=== PATIENT | male | born 1985 | race Caucasian/White ===

== ENCOUNTER 2016-10-01 13:48 | Emergency (ER) | payer MEDICAID ==
[~2016-10-01] VITALS: Ht 185.4 cm; Wt 98.8 kg
[~2016-10-01 13:48] MED LIST: AMOX1TAB61 PO
[2016-10-01 13:49] VITALS: BP 115/68
[2016-10-01] MEDS ORDERED: METHOCARBAMOL 750 MG TABLET PO ONE (14:30)
[2016-10-01] MEDS ORDERED: KETOROLAC 30 MG/1 ML IM ONE (14:30)
[2016-10-01] MEDS ORDERED: KETOROLAC 30 MG/1 ML ONE (14:37)
[2016-10-01] MEDS ORDERED: METHOCARBAMOL 750 MG TABLET ONE (14:37)
== END 2016-10-01 15:21 | disposition home or self-care (01) ==
LOC: ED 15:05
DX: S39.012A Strain of muscle, fascia and tendon of lower back, initial encounter (principal); F12.10 Cannabis abuse, uncomplicated; X50.9XXA Other and unspecified overexertion or strenuous movements or postures, initial encounter; Y93.89 Activity, other specified; Y92.89 Other specified places as the place of occurrence of the external cause; Y99.8 Other external cause status
CPT/HCPCS: 71020; 72110; 96372; 99284; J1885

== ENCOUNTER 2016-10-13 19:34 | Emergency (ER) | payer MEDICAID ==
[~2016-10-13] VITALS: Ht 185.4 cm; Wt 102.1 kg
[2016-10-13 19:37] VITALS: BP 125/74
[2016-10-13] MEDS ORDERED: DEXAMETHASONE 4 MG/ML, 5ML ONE (20:17)
[2016-10-13] MEDS ORDERED: KETOROLAC 30 MG/1 ML ONE (20:18)
[2016-10-13] MEDS ORDERED: AMOXICILLIN 500 MG CAPSULE PO ONE (20:30)
[2016-10-13] MEDS ORDERED: KETOROLAC 30 MG/1 ML IM ONE (20:30)
[2016-10-13] MEDS ORDERED: DEXAMETHASONE 4 MG/ML, 1ML IM ONE (20:30)
== END 2016-10-13 21:15 | disposition home or self-care (01) ==
LOC: ED 21:03
DX: J02.9 Acute pharyngitis, unspecified (principal)
CPT/HCPCS: 96372; 99284; J1100; J1885

== ENCOUNTER 2016-11-20 21:57 | Emergency (ER) | payer MEDICAID ==
[~2016-11-20] VITALS: Ht 185.4 cm; Wt 101.0 kg
[2016-11-20 22:00] VITALS: BP 114/69
[2016-11-20] MEDS ORDERED: DIPHENHYDRAMINE 25 MG CAPSULE ONE (22:57)
[2016-11-20] MEDS ORDERED: DIPHENHYDRAMINE 25 MG CAPSULE PO ONE (23:00)
== END 2016-11-20 23:08 | disposition home or self-care (01) ==
LOC: ED 23:07
DX: J00 Acute nasopharyngitis [common cold] (principal); J01.00 Acute maxillary sinusitis, unspecified
CPT/HCPCS: 71020; 99284

== ENCOUNTER 2020-10-17 08:32 | Emergency (ER) | payer SELFPAY ==
[~2020-10-17] VITALS: Ht 185.4 cm; Wt 125.0 kg
[2020-10-17 08:37] VITALS: BP 140/77
[2020-10-17] MEDS ORDERED: DEXAMETHASONE 4 MG TABLET ONE (08:53)
[2020-10-17] MEDS ORDERED: DEXAMETHASONE 4 MG TABLET PO ONE (09:00)
--- NOTE | 2020-10-17 09:48 | NUR ---
Patient given discharge instructions and they have confirmed that they understand the instructions. Patient ambulatory with steady gait.
== END 2020-10-17 09:50 | disposition home or self-care (01) ==
LOC: ED 09:45
DX: J02.9 Acute pharyngitis, unspecified (principal); J30.9 Allergic rhinitis, unspecified; R09.81 Nasal congestion
CPT/HCPCS: 87081; 87880; 99283

== ENCOUNTER 2020-10-27 20:36 | Emergency (ER) | payer SELFPAY ==
[~2020-10-27] VITALS: Ht 185.4 cm; Wt 126.0 kg
[2020-10-27] MEDS ORDERED: IBUPROFEN 600 MG TABLET PO ONE (21:00)
[2020-10-27] MEDS ORDERED: IBUPROFEN 600 MG TABLET ONE (22:41)
[2020-10-27] MEDS ORDERED: DEXAMETHASONE 4 MG TABLET ONE (22:41)
[2020-10-27] MEDS ORDERED: DIPHENHYDRAMINE 25 MG CAPSULE ONE (22:48)
[2020-10-27] MEDS ORDERED: DEXAMETHASONE 4 MG TABLET PO ONE (23:00)
[2020-10-27] MEDS ORDERED: DIPHENHYDRAMINE 25 MG CAPSULE PO ONE (23:00)
[2020-10-27 23:31] VITALS: BP 138/84
== END 2020-10-27 23:59 | disposition home or self-care (01) ==
LOC: ED 23:51
DX: B34.9 Viral infection, unspecified (principal); Z20.822 Contact with and (suspected) exposure to COVID-19; Z90.89 Acquired absence of other organs
CPT/HCPCS: 99284; Q0163; U0003; U0005